=== PATIENT | female | born 1955 | race African-American/Black ===

== ENCOUNTER 2017-05-11 12:59 | Inpatient (IN) | payer OTHER ==
[~2017-05-11] VITALS: Ht 165.1 cm; Wt 65.8 kg
--- NOTE | ~2017-05-11 | CATHLAB ---
[facility] [address] [place] [address] INVASIVE PROCEDURE REPORT Name: MATHEW PRATHER Room #: 422-P [facility] IN ..#: [id number] Admission: 05/11/17 Attend Phys: Corbin Ferguson, Discharge: Date of : 59 Date of Service: 05/12/17 0815 Report #: [id number] THIS REPORT FOR: //name// APPROVED REPORT Patient Details Patient Status: In-Patient Room #: The patient is a 61 year-old female Event Personnel Vikash Ramírez Mechanical Insulator, Tala Reeves, Claudia Gonzalez RTR, Jerrod Gudino Ceola RN RN, Liza Forbes RN RN, Christine Hutchison RN container filler Performed Art Access - R femoral artery* [id number] Initial Mod Sed Same Phys/QHP Gr5y [id number] Left Heart Cath w/or w/o Coronaries [id number] [facility] Hemostasis w/ Mynx Indication Chest pain Procedure Narrative The patient was brought urgently to the Cardiac Catheterization Laboratory and was prepped and draped in a sterile manner. The Right Groin^ was infiltrated with 1% Lidocaine subcutaneous anesthesia. A PINNACLE 6FR Sheath #[id number] sheath was inserted into the RFA. Coronary angiography was performed using coronary diagnostic catheters. The right coronary system was accessed and visualized with a JR 4 catheter. The left coronary system was accessed and visualized with a JL 4 catheter. The left ventricle was accessed and visualized with a Pigtail catheter. Left ventricular/Aortic Valve gradient assessed via catheter pullback. Left ventriculogram was performed in REYNOSO projection. Closure device was deployed with a 6 Fr Mynx. The patient tolerated the procedure well and there were no complications associated with the procedure. There was no hematoma. Intraoperative Conscious Sedation Sedation start time: 07:31 Case end Time: 07:45 Fentanyl 25 mcg Versed 1 mg Fluoro Time: 1.01 minutes Dose: DAP 1549.80 cGycm2 169 mGy Contrast Type and Amount: Omnipaque 110 ml [facility] [address] [place] [address] INVASIVE PROCEDURE REPORT Name: MATHEW PRATHER Candy Room #: 422-P [facility].#: [id number] Admission: 05/11/17 Attend Phys: Corbin Ferguson, Discharge: Date of : 59 Date of Service: 05/12/17 0815 Report #: [id number] Diagnostic Cath Left Main Normal LAD The LAD is a large vessel that extends to the inferoapex. The LAD is normal throughout its course. Diagonal 1 Moderately large first diagonal branch, angiographically normal Diagonal 2 Small second diagonal branch, and angiographically normal OM1 Large first marginal branch with 40-50% proximal stenosis OM2 Second marginal branch, small and angiographically normal Right Coronary The right coronary was angiographically normal throughout its course RPLV Moderate size posterior lateral branch, angiographically normal Left Ventriculography The left ventricle is normal in size with normal contractility. The left ventricular ejection fraction is estimated to be 60-65%. Left ventricular wall motion abnormalities are not present. There is no mitral insufficiency. Hemodynamics The aortic pressure is 147/74 mmHg with a mean of 107 mmHg. The left ventricular pressure is 144/11 mmHg with a mean of mmHg. The left ventricular end diastolic pressure is 23 mmHg. Pullback from the left ventricle to the aorta revealed no gradient across the aortic valve. Conclusion 1. Normal global and regional left ventricular systolic function. EF 65% 2. Normal left main 3. Normal left anterior descending 4. Large circumflex with 40-50% OM1 stenosis 5. Normal dominant right coronary Recommendations Aggressive Medical Therapy <ELECTRONICALLY SIGNED> By: Vikash Ramírez MD, FACC 05/12/17814 4 4 Vikash Ramírez MD, FACC /INF
--- NOTE | ~2017-05-11 | HC ---
[facility] [place] [address] CONSULTATION Name: MATHEW PRATHER Candy Room #: 422-P [facility] IN .R.#: [id number] Admission: 05/11/17 Attend Phys: Corbin Ferguson DO Discharge: Date of : 59 Report #: [id number] THIS REPORT FOR: //name// CC: Corbin Granados REASON FOR CONSULTATION: Chest pain. HISTORY OF PRESENT ILLNESS: The patient is a 61-year-old woman with history of hypertension and diabetes. She has a strong family history of coronary disease with both brother and sister with heart attacks in their 40s. Last night, around midnight, while at work, she developed a brick-like feeling in her mid chest. This was associated with left jaw numbness. Pain persisted and she went home at 3:00 a.m. to go to bed. When she awakened the pain was still there. She ended up going to Urgent Care in [place] who recommended evaluation in the Emergency Department. She was seen in the Emergency Department where she was hypertensive. Of note, she has been out of her usual blood pressure medicines for the past week. She was given morphine, aspirin and her pain resolved. She is also treated for hypertension with a dose of amlodipine and lisinopril. She denies heart failure symptoms including orthopnea, paroxysmal nocturnal dyspnea or lower extremity edema. No history of near syncope or syncope. ALLERGIES: No known drug allergies. MEDICATIONS: Include metformin 1000 mg twice daily, lisinopril 20 mg twice daily, amlodipine 5 mg daily. PAST MEDICAL AND SURGICAL HISTORY: Medical records have been reviewed and include history of hypertension, type 2 diabetes, total abdominal hysterectomy, cholecystectomy. SOCIAL HISTORY: She is a nonsmoker. She works in a [employer] company. She does a lot of lifting and upper body work. FAMILY HISTORY: Both brother and sister had heart attacks in their 40s. REVIEW OF SYSTEMS: All systems negative except as that noted above. PHYSICAL EXAMINATION: GENERAL: Reveals a pleasant woman in no distress. VITAL SIGNS: Blood pressure is 140/80, heart rate of 90 and regular, she is afebrile, 5 feet 5 inches tall, 165 pounds. HEENT: There are neither xanthelasma, subcutaneous xanthomata, oral mucosal or digital cyanosis or kyphoscoliosis present. CHEST: Clear to auscultation and percussion. CARDIAC: Regular rate and rhythm with normal S1, S2. No murmurs, rubs. ABDOMEN: Soft and nontender. [facility] [address] [place] [address] CONSULTATION Name: MATHEW PRATHER Room #: 422-P [facility] IN [facility]#: [id number] Admission: 05/11/17 Attend Phys: Corbin Ferguson DO Discharge: Date of : 59 Report #: [id number] EXTREMITIES: Without cyanosis, clubbing or edema. Radial pulses are 2+. NEUROLOGIC: She is alert with a nonfocal exam. LABORATORY DATA: EKG sinus rhythm with minimal nonspecific ST segment abnormality. Troponins are 0. Sodium 139, potassium 3.7, creatinine 0.8, glucose 299. Coagulation parameters normal. White count 6.3, hemoglobin 13, hematocrit 40, platelet count 197, hemoglobin A1c 7.2. Chest x-ray is normal. IMPRESSION: 1. Chest pain with mixed features for angina. 2. Hypertension, poorly controlled, has been off his medicines for one week. 3. Diabetes. 4. Unknown lipid status. 5. Family history of premature coronary artery disease. RECOMMENDATIONS: 1. Serial cardiac enzymes. 2. Resume lisinopril. Addition of aspirin and statin therapy, topical nitrates. 3. Consider stress testing versus coronary angiography. I have outlined both procedures in detail. Her preference given the nature of her symptoms is to know definitively by angiography. I believe this is reasonable. This procedure was discussed including its risks, benefits as well as alternative strategies to treating possible underlying coronary disease. Further thoughts will be forthcoming based on this evaluation. Thank you for asking me to participate in her care. <ELECTRONICALLY SIGNED> By: Vikash Ramírez MD, [facility] 05/12/17 [phone] Vikash Ramírez MD, FAC /nt
--- NOTE | ~2017-05-11 | EKG ---
[place] [address] [facility] [facility] [place] [address] ELECTROCARDIOGRAM REPORT Name: ROBERT PRATHERLindy Gupta Room #: 422-P ADM IN M.R.#: [id number] Admission: 05/11/17 Attend Phys: Corbin Ferguson DO Discharge: Date of : 59 Report #: [id number] THIS REPORT FOR: //name// [facility] ED Test Date: 2017-05-11 Test Time: 13:12:04 Pat Name: MATHEW PRATHER Department: Room: 422 Gender: F Immunology Specialist: pilar : 1955 Requested By: Jamaica Westfall Order Number: [id number] MD: Charly Magaña Measurements Intervals [place] Rate: 66 P: 30 CT: 151 QRS: -6 QRSD: 91 T: 5 QT: 398 QTc: 417 Interpretive Statements Sinus rhythm Consider left ventricular hypertrophy Compared to ECG 12/11/2010 13:11:31 Left ventricular hypertrophy now present Electronically Signed On 05-11-2017 19:24:35 POWER TECHNICIAN by Charly Magaña [email or web address] <ELECTRONICALLY SIGNED> By: Charly Magaña MD 05/11/17 1924 11 11 Charly Magaña MD /ARMAND
[~2017-05-11 12:59] MED LIST: AMLODIPINE PO; CIPROFLOXIN HC2.5 ML OPHTHALMIC; GLUCOPHAGE500 MG PO; LISINOPRIL-HCT1 EAC1 PO; NAPROSYN500 MG PO; NORCO 5-325 TA1 EACH PO; NORVASC 5 MG TAB5 MG PO; NORVASC10 MG PO; ONDANSETRON HCL4 M2 PO; PHENERGAN 25 MG25 M1 PO; PRINIVIL20 MG PO; VICODIN PO; ZOFRAN ODT4 MG PO
[2017-05-11 13:06] VITALS: BP 209/115
[2017-05-11 13:20] LABS: ABSOLUTE NEUTROPHILS 3.2 thou/uL (1.4-8.2); BASOPHILS 0.6 % (0.0-2.0); EOSINOPHILS 2.8 % (0.0-3.0); HEMOGLOBIN 13.5 gm/dL (12.0-15.0); LYMPHOCYTES 39.8 % (24.0-44.0); MCHC 33.8 g/dL (28.0-37.0); MCV 85.7 fL (80.0-100.0); MONOCYTES 6.4 % (1.0-8.0); PLATELET COUNT 197 thou/uL (150-400); POLYS 50.4 % (36.0-66.0); RBC 4.67 mil/uL (4.20-5.00); RDW 13.4 % (10.5-14.5); WBC 6.3 thou/uL (4.0-11.0)
[2017-05-11 13:30] LABS: ANION GAP 10 mmol/L (7-16); BUN 6 mg/dL (7-18); CALCIUM 8.9 mg/dL (8.5-10.1); CHLORIDE 104 mmol/L (98-107); CO2 25 mmol/L (21-32); CREATININE 0.8 mg/dL (0.6-1.0); GLUCOSE 299 mg/dL (74-106); POTASSIUM 3.7 mmol/L (3.5-5.1); SODIUM 139 mmol/L (136-145)
[2017-05-11 13:37] LABS: TROPONIN-I < 0.04 ng/mL (<0.06)
[2017-05-11] MEDS ORDERED: METFORMIN HCL500 MG PO (13:40)
[2017-05-11] MEDS ORDERED: PRINIVIL20 MG PO (13:40)
[2017-05-11] MEDS ORDERED: NORVASC5 MG PO (13:40)
[2017-05-11 15:20] LABS: URINE BILIRUBIN NEGATIVE (Negative); URINE BLOOD NEGATIVE (Negative); URINE CLARITY CLEAR; URINE COLOR YELLOW; URINE GLUCOSE-RANDOM* 3+ (Negative); URINE KETONES NEGATIVE (Negative); URINE LEUKOCYTES 1+ (Negative); URINE NITRITE NEGATIVE (Negative); URINE PROTEIN (DIPSTICK) NEGATIVE (Negative); URINE SPECIFIC GRAVITY <= 1.005 (1.005-1.035); URINE UROBILINOGEN 0.2 E.U./dl (0.2-1.0)
[2017-05-11 15:26] LABS: SQUAMOUS >10 Many /LPF (0-3)
[2017-05-11 15:27] LABS: BACTERIA 1-9 Few /HPF (None Seen); CRYSTALS None Seen /LPF (None Seen); URINE RBC None Seen /HPF (0-2); URINE WBC 0-5 Rare /HPF (0-5)
[2017-05-11 16:11] VITALS: BP 153/86
[2017-05-11 17:35] VITALS: BP 144/85
[2017-05-11 20:00] VITALS: BP 124/82
[2017-05-11 23:14] VITALS: BP 153/86
[2017-05-12] VITALS (8 sets, daily range): BP systolic 115–142; BP diastolic 76–98
[2017-05-12 06:43] LABS: ABSOLUTE NEUTROPHILS 3.6 thou/uL (1.4-8.2); BASOPHILS 0.5 % (0.0-2.0); EOSINOPHILS 3.5 % (0.0-3.0); HEMATOCRIT 38.8 % (37.0-47.0); HEMOGLOBIN 12.8 gm/dL (12.0-15.0); LYMPHOCYTES 37.9 % (24.0-44.0); MCH 28.9 pg (26.0-34.0); MCV 87.6 fL (80.0-100.0); MONOCYTES 6.7 % (1.0-8.0); PLATELET COUNT 199 thou/uL (150-400); POLYS 51.4 % (36.0-66.0); RBC 4.43 mil/uL (4.20-5.00); RDW 13.4 % (10.5-14.5)
[2017-05-12 06:55] LABS: ANION GAP 7 mmol/L (7-16); BUN 10 mg/dL (7-18); CALCIUM 8.8 mg/dL (8.5-10.1); CHLORIDE 106 mmol/L (98-107); CHOLESTEROL 144 mg/dL (<200); CO2 27 mmol/L (21-32); CREATININE 0.8 mg/dL (0.6-1.0); GLUCOSE 210 mg/dL (74-106); HDL CHOLESTEROL 37 mg/dL (>40); LDL CHOLESTEROL 85 mg/dL (<100); POTASSIUM 3.6 mmol/L (3.5-5.1); SODIUM 140 mmol/L (136-145); TC:HDL 3.9 Ratio (Not establshd); TRIGLYCERIDE 112 mg/dL (<150); VLDL 22 mg/dL (<40)
[2017-05-12] MEDS ORDERED: ATORVASTATIN CA10 MG PO (09:51)
[2017-05-12] MEDS ORDERED: PRINIVIL20 MG PO (09:52)
[2017-05-12] MEDS ORDERED: ASPIRIN325 PO (09:52)
[2017-05-12] MEDS ORDERED: METFORMIN HCL500 MG PO (09:52)
== END 2017-05-12 16:32 | disposition home or self-care (01) | DRG 287 ==
LOC: ER 12:59 → 4E 15:26 → EROBS 15:26 → 4E 17:46 → ENTRNSPT 05-12 15:56 → 4E 05-12 16:32
PROVIDERS: Emergency Medicine; Family Medicine
PROC: 4A023N7 Measurement of Cardiac Sampling and Pressure, Left Heart, Percutaneous Approach (ICD-10-PCS; principal; 2017-05-12)
PROC: B2111ZZ Fluoroscopy of Multiple Coronary Arteries using Low Osmolar Contrast (ICD-10-PCS; 2017-05-12)
PROC: B2151ZZ Fluoroscopy of Left Heart using Low Osmolar Contrast (ICD-10-PCS; 2017-05-12)
DX: I20.9 Angina pectoris, unspecified (principal); I10 Essential (primary) hypertension; E11.9 Type 2 diabetes mellitus without complications; Z82.49 Family history of ischemic heart disease and other diseases of the circulatory system; Z90.710 Acquired absence of both cervix and uterus; Z90.49 Acquired absence of other specified parts of digestive tract; Z79.899 Other long term (current) drug therapy
CPT/HCPCS: 10183

== ENCOUNTER 2017-12-19 10:39 | Emergency (ER) | payer OTHER ==
[~2017-12-19] VITALS: Ht 165.1 cm; Wt 63.0 kg
[~2017-12-19 10:39] MED LIST changes: +ASPIRIN325 PO; +ATORVASTATIN CA10 MG PO; +METFORMIN HCL500 MG PO; +NORVASC5 MG PO
[2017-12-19] MEDS ORDERED: METFORMIN HCL500 MG PO (10:54)
[2017-12-19] MEDS ORDERED: LOPRESSOR50 PO (10:55)
[2017-12-19] MEDS ORDERED: LYRICA 75 MG CA75 MG PO (10:55)
[2017-12-19] MEDS ORDERED: TRESIBA FL100 UNIT/1 (10:58)
[2017-12-19] MEDS ORDERED: PREDNISONE 20 M20 MG PO (12:03)
[2017-12-19] MEDS ORDERED: PEPCID20 MG PO (12:03)
[2017-12-19] MEDS ORDERED: BENADRYL25 MG PO (12:03)
== END 2017-12-19 12:13 | disposition home or self-care (01) ==
LOC: ER 10:39
DX: L50.0 Allergic urticaria (principal); I10 Essential (primary) hypertension; E11.9 Type 2 diabetes mellitus without complications; Z90.49 Acquired absence of other specified parts of digestive tract; Z90.710 Acquired absence of both cervix and uterus

== ENCOUNTER 2018-06-15 10:31 | Emergency (ER) | payer OTHER ==
[~2018-06-15] VITALS: Ht 165.1 cm; Wt 61.2 kg
[~2018-06-15 10:31] MED LIST changes: +BENADRYL25 MG PO; +LOPRESSOR50 PO; +LYRICA 75 MG CA75 MG PO; +PEPCID20 MG PO; +PREDNISONE 20 M20 MG PO; +TRESIBA FL100 UNIT/1
[2018-06-15] MEDS ORDERED: MOBIC15 MG PO (11:36)
[2018-06-15 12:00] VITALS: BP 162/94
== END 2018-06-15 12:01 | disposition home or self-care (01) ==
LOC: ER 10:31
DX: M25.462 Effusion, left knee (principal); M25.562 Pain in left knee; I10 Essential (primary) hypertension; E11.9 Type 2 diabetes mellitus without complications; Z90.49 Acquired absence of other specified parts of digestive tract; Z90.710 Acquired absence of both cervix and uterus; Z79.4 Long term (current) use of insulin

== ENCOUNTER 2018-12-15 17:27 | Emergency (ER) | payer OTHER ==
[~2018-12-15] VITALS: Ht 165.1 cm; Wt 61.2 kg
[~2018-12-15 17:27] MED LIST changes: +MOBIC15 MG PO
[2018-12-15] MEDS ORDERED: NAPROSYN500 MG PO (19:46)
[2018-12-15 20:07] VITALS: BP 155/48
== END 2018-12-15 20:08 | disposition home or self-care (01) ==
LOC: ER 17:27
DX: M13.862 Other specified arthritis, left knee (principal); R60.0 Localized edema; M25.551 Pain in right hip; I10 Essential (primary) hypertension; E11.9 Type 2 diabetes mellitus without complications; Z90.710 Acquired absence of both cervix and uterus; Z90.49 Acquired absence of other specified parts of digestive tract

== ENCOUNTER 2019-02-23 06:04 | Emergency (ER) | payer OTHER ==
[~2019-02-23] VITALS: Ht 165.1 cm; Wt 63.5 kg
[2019-02-23 06:49] LABS: ABSOLUTE NEUTROPHILS 11.1 thou/uL (1.4-8.2); BASOPHILS 0.7 % (0.0-2.0); EOSINOPHILS 0.3 % (0.0-3.0); HEMATOCRIT 38.8 % (37.0-47.0); HEMOGLOBIN 12.9 gm/dL (12.0-15.0); LYMPHOCYTES 19.9 % (24.0-44.0); MCH 28.9 pg (26.0-34.0); MCHC 33.2 g/dL (28.0-37.0); MCV 86.9 fL (80.0-100.0); MONOCYTES 5.9 % (1.0-8.0); PLATELET COUNT 279 thou/uL (150-400); POLYS 73.2 % (36.0-66.0); RBC 4.46 mil/uL (4.20-5.00); RDW 13.3 % (10.5-14.5); WBC 15.2 thou/uL (4.0-11.0)
[2019-02-23 06:52] LABS: ANION GAP 12 mmol/L (7-16); BUN 10 mg/dL (7-18); CALCIUM 10.3 mg/dL (8.5-10.1); CHLORIDE 101 mmol/L (98-107); CO2 25 mmol/L (21-32); CREATININE 0.8 mg/dL (0.6-1.0); GLUCOSE 315 mg/dL (74-106); POTASSIUM 3.8 mmol/L (3.5-5.1); SODIUM 138 mmol/L (136-145)
[2019-02-23 07:00] LABS: TROPONIN-I <0.06 ng/mL (<0.06)
[2019-02-23] MEDS ORDERED: MEDROLDOSEPACK PO (07:37)
[2019-02-23] MEDS ORDERED: TYLENOL WITH CO1 TA1 PO (07:37)
[2019-02-23 07:54] VITALS: BP 167/96
--- NOTE | 2019-02-23 08:34 | EKG ---
[address] [address] ELECTROCARDIOGRAM REPORT Name: ROBERT PRATHERLindy Gupta [id number] Admission: 02/23/19 Attend Phys: Discharge: 02/23/19 Date of : 59 Report #: [id number] THIS REPORT FOR: //name// [facility] ED Test Date: 2019-02-23 Test Time: 06:44:29 Pat Name: MATHEW PRATHER Department: Room: Gender: F Family Services Coordinator: MIKE : 1955 Requested By: Franklin Nevarez Order Number: [id number] MD: Charly Magaña Measurements Intervals [place] Rate: 94 P: 24 AR: 149 QRS: -12 QRSD: 122 T: 5 QT: 342 QTc: 428 Interpretive Statements Sinus rhythm Probable left atrial enlargement Nonspecific intraventricular conduction delay Compared to ECG 05/11/2017 13:12:04 Intraventricular conduction delay now present Electronically Signed On 02-23-2019 8:34:09 ULTRASOUND SUPERVISOR by Charly Magaña [email or web address] <ELECTRONICALLY SIGNED> By: Charly Magaña MD 02/23/19 0834 [phone] Charly Magaña MD /ARMAND
== END 2019-02-23 07:55 | disposition home or self-care (01) ==
LOC: ER 06:04
PROVIDERS: Emergency Medicine
DX: J20.9 Acute bronchitis, unspecified (principal); J21.9 Acute bronchiolitis, unspecified; I10 Essential (primary) hypertension; E11.9 Type 2 diabetes mellitus without complications; Z90.710 Acquired absence of both cervix and uterus; Z90.49 Acquired absence of other specified parts of digestive tract

== ENCOUNTER 2020-07-06 19:54 | Emergency (ER) | payer OTHER ==
[~2020-07-06] VITALS: Ht 165.1 cm; Wt 63.5 kg
[~2020-07-06 19:54] MED LIST changes: +MEDROLDOSEPACK PO; +TYLENOL WITH CO1 TA1 PO
[2020-07-06 20:51] LABS: CALCIUM 9.3 mg/dL (8.5-10.1); CREATININE 0.8 mg/dL (0.6-1.0); POTASSIUM 3.6 mmol/L (3.5-5.1)
[2020-07-06 21:06] VITALS: BP 180/95
== END 2020-07-06 21:09 | disposition home or self-care (01) ==
LOC: ER 19:54
PROVIDERS: Nurse Practitioner
DX: Q74.0 Other congenital malformations of upper limb(s), including shoulder girdle (principal); I10 Essential (primary) hypertension; E11.65 Type 2 diabetes mellitus with hyperglycemia; Z79.4 Long term (current) use of insulin; Z90.710 Acquired absence of both cervix and uterus; Z90.49 Acquired absence of other specified parts of digestive tract

== ENCOUNTER 2021-02-13 19:07 | Emergency (ER) | payer OTHER ==
[~2021-02-13] VITALS: Ht 165.1 cm; Wt 63.5 kg
[2021-02-13] MEDS ORDERED: ACTOS 45 MG45 M2 PO (19:30)
[2021-02-13] MEDS ORDERED: AMLODIPINE BESY10 MG PO (19:31)
[2021-02-13] MEDS ORDERED: NORVASC10 MG PO (22:13)
[2021-02-13] MEDS ORDERED: TOPROL XL50 MG PO (22:13)
[2021-02-13 22:44] VITALS: BP 158/98
== END 2021-02-13 22:45 | disposition home or self-care (01) ==
LOC: ER 19:07
DX: R04.0 Epistaxis (principal); I10 Essential (primary) hypertension; E11.9 Type 2 diabetes mellitus without complications; Z79.899 Other long term (current) drug therapy; Z90.49 Acquired absence of other specified parts of digestive tract; Z90.710 Acquired absence of both cervix and uterus